=== PATIENT | female | born 1980 | race Caucasian/White ===

== ENCOUNTER 2021-05-08 00:56 | Emergency (ER) | payer BC, SELFPAY ==
--- NOTE | ~2021-05-08 | CT_ITS ---
EXAMINATION: CT BRAIN W/O DATE: 05/08/2021 02:52 INDICATION: Headache after trauma TECHNIQUE: Computed tomography (CT) of the head was performed without intravenous contrast. The dose- length product was 1210.67 mGy-cm. COMPARISON: No prior studies for comparison. FINDINGS: Normal brain parenchymal volume for age. Normal sol-white differentiation. No acute intrac ranial hemorrhage, infarction, mass or mass effect. No ventriculomegaly or midline shift. Midline sagittal images demonstrate a normal corpus callosum, c raniovertebral junction and sella turcica. Basilar cisterns are patent. Paranasal sinuses and mastoids are pneumatized. No depressed skull fractures. IMPRESSION: 1. No acute intracranial abnormality. Reviewed, dictated and finalized at location A.
[2021-05-08 00:56] VITALS: BP 136/78; PULSE 86; RESP 16; TEMP 36.6; O2SAT 100
--- NOTE | 2021-05-08 03:00 | ED.FALL ---
HPI - Fall General Chief Complaint: Fall Stated Complaint: fall/ head lac/ ETOH History of Present Illness HPI Narrative: Patient is a 40-year-old female who presents to the ER status post fall. She had been drinking alcohol tonight and was walking down some stairs when she tripped. She started falling forward and went headfirst towards a chair which then fell backwards and struck her. She had 6-second loss of consciousness according to significant other. She is not on any blood thinners. She is awake alert and oriented however she is very intoxicated. She has a laceration of her left eyebrow that is 1.5 cm in length. Unknown last tetanus. Related Data Home Medications Medication Instructions Recorded Confirmed norethindrone 1 mg-ethinyl 1 tablet PO DAILY 09/24/20 12/29/20 estradiol 10 mcg (24)-iron 10 mcg(2) tablet Allergies Allergy/AdvReac Type Severity Reaction Status Date / Time acetaminophen Allergy unknown Verified 05/08/21 02:10 OXYCODONE HCL Allergy unknown Uncoded 05/08/21 02:10 Review of Systems Review of Systems: All systems reviewed & are unremarkable except as noted in HPI and below ENT: Denies dizziness Comments: Eyebrow laceration Gastrointestinal: Gastrointestinal: Denies abdominal pain, Denies nausea and Denies vomiting Neurologic: Reports syncope, Denies focal weakness and Denies numbness PMFSH Past Medical History Medical History (Updated 05/08/21 @ 03:53 by Juan Jose Farah MD) Healthy female adult Surgical History Surgical History (Updated 05/08/21 @ 03:02 by Juan Jose Farah MD) No pertinent past surgical history Family History Family History Father Depression Anxiety Mother Anxiety Depression Hypertension Sibling Depression Anxiety Grandparent Hypertension Heart disease Diabetes mellitus Cancer Social History Social History Smoking status: Never smoker Alcohol intake: current Substance use: never Exam Narrative: GENERAL: Well-appearing, well-nourished, and in no acute distress. HEAD: Normocephalic, 1.5 cm laceration above the left eyebrow medially. EYES: PERRL and EOMI. ENT: Mucous membranes moist. NECK: Supple. No paraspinal muscular tenderness. CHEST: Clear to auscultation. No respiratory distress. HEART: Regular rate and rhythm. Normal peripheral pulses. EXTREMITIES: Normal range of motion. No edema. NEURO: Alert and oriented x3. Course Vital Signs Vital signs: Vital Signs Temperature 97.9 F 05/08/21 00:56 Pulse Rate 86 05/08/21 00:56 Respiratory Rate 16 05/08/21 00:56 Blood Pressure 136/78 05/08/21 00:56 Pulse Oximetry 100 05/08/21 00:56 Temperature 97.9 F 05/08/21 00:56 Pulse Rate 78 05/08/21 03:34 Respiratory Rate 18 05/08/21 03:34 Blood Pressure 130/76 05/08/21 03:34 Pulse Oximetry 99 05/08/21 03:34 Procedures Laceration Laceration 1: Date: 05/08/21 Time: 03:00 Site: face Side (If applicable): left Size (cm): 1.5 Description: linear Depth: simple, single layer Local Anesthetic: lidocaine 1% and with epi Amount of anesthesia used (mL): 2 Pre-repair: wound explored and irrigated ====== Skin Level ====== Skin layer closed with: nylon Size (cm): 5-0 Number of sutures: 3 Technique: simple, interrupted ====== Subcutaneous Layer ====== ====== Muscle Layer ====== ====== Tendon Layer ====== MDM - Fall Imaging Data Radiologist's impression: CT brain: No hemorrhage, hydrocephalus, mass-effect, or herniation. Bones are unremarkable. Discharge Plan Discharge Clinical Impression: Laceration of eyebrow Patient Disposition: Home, Self-Care Condition: Stable Instructions: Laceration (ED) Additional Instructions: Return to the ER if yo
--- NOTE | 2021-05-08 03:08 | PC.NURSE ---
Pt refused tetnus shot. States she had one 6 years ago.
[2021-05-08 03:34] VITALS: BP 130/76; PULSE 78; RESP 18; O2SAT 99
== END 2021-05-08 04:20 | disposition home or self-care (01) ==
PROVIDERS: Emergency Provider Emergency Medicine; PCP Physician Assistant
DX: S01.112A Laceration without foreign body of left eyelid and periocular area, initial encounter (principal); W10.9XXA Fall (on) (from) unspecified stairs and steps, initial encounter
CPT/HCPCS: 12011; 70450; 99284